=== PATIENT | male | born 1960 | race Caucasian/White ===

== ENCOUNTER 2020-06-16 22:30 | Observation (INO) | payer MEDICAID ==
[~2020-06-16] VITALS: Ht 175.3 cm; Wt 84.7 kg
[2020-06-16] MEDS ORDERED: ASPIRIN 81 MG CHEW (CHILDREN'S ASA) PO ONE (23:00)
[2020-06-16] MEDS ORDERED: NITROGLYCERIN 0.4 MG SL TABS BTL 25'S SL PRN (23:00)
--- NOTE | 2020-06-16 23:01 | ED Chest Pain ---
General Stated Complaint: CHEST PAIN,LT ARM NUMBNESS Source: patient History of Present Illness Date Seen by Provider: Jun 16, 2020 Time Seen by Provider: 22:47 Allergies and Home Medications Allergies Coded Allergies: No Known Drug Allergies (Unverified , 06/16/20) Past Rfagzzl-Nducpo-Ztfdnq Hx Past Med/Social Hx: Reviewed and Corrections made Patient Social History Alcohol Use: Regular Use Recreational Drug Use: Yes (THC; UDS + FOR METH AND TRICYCLICS 06/17/20) Drug of Choice: THC, UDS + FOR METH, TRICYCLICS 06/17/20 Smoking Status: Current Everyday Smoker (1 PPD) Type Used: Cigarettes Recent Foreign Travel: No Contact w/Someone Who Travel: No Past Medical History Surgeries: Yes (AORTIC VALVE REPLACEMENT) Pacemaker, Valve Replacement Respiratory: No Cardiac: Yes (AORTIC VALVE REPLACEMENT-MECHANICAL VALVE; PACEMAKER FOR UNKNOWN REASON) Hypertension, Valvular Heart Disease Neurological: No Genitourinary: No Gastrointestinal: No Musculoskeletal: No Endocrine: No HEENT: No Cancer: No Psychosocial: Yes (POLYSUBSTANCE ABUSE) Integumentary: No Blood Disorders: No Family Medical History SOCIAL HISTORY: -REGULAR ETOH USE--MOSTLY TEQUILA -DRUGS--ADMITS TO THC USE; UDS + FOR METHAMPHETAMINES AND TRICYCLIC ANTIDEPRESSANTS 06/17/20 -SMOKES 1 PPD Physical Exam Vital Signs Capillary Refill : Height, Weight, BMI Height: '" Weight: lbs. oz. kg; BMI Method: Progress/Results/Core Measures Results/Orders Lab Results Laboratory Tests Test 06/16/20 22:55 06/17/20 01:10 Range/Units White Blood Count 7.1 4.3-11.0 10^3/uL Red Blood Count 3.68 L 4.30-5.52 10^6/uL Hemoglobin 11.0 L 13.3-17.7 g/dL Hematocrit 34 L 40-54 % Mean Corpuscular Volume 94 80-99 fL Mean Corpuscular Hemoglobin 30 25-34 pg Mean Corpuscular Hemoglobin Concent 32 32-36 g/dL Red Cell Distribution Width 15.3 H 10.0-14.5 % Platelet Count 183 130-400 10^3/uL Mean Platelet Volume 11.5 9.0-12.2 fL Immature Granulocyte % (Auto) 0 % Neutrophils (%) (Auto) 61 42-75 % Lymphocytes (%) (Auto) 25 12-44 % Monocytes (%) (Auto) 9 0-12 % Eosinophils (%) (Auto) 4 0-10 % Basophils (%) (Auto) 1 0-10 % Neutrophils # (Auto) 4.4 1.8-7.8 10^3/uL Lymphocytes # (Auto) 1.8 1.0-4.0 10^3/uL Monocytes # (Auto) 0.6 0.0-1.0 10^3/uL Eosinophils # (Auto) 0.3 0.0-0.3 10^3/uL Basophils # (Auto) 0.0 0.0-0.1 10^3/uL Immature Granulocyte # (Auto) 0.0 0.0-0.1 10^3/uL Prothrombin Time 26.6 H 12.2-14.7 SEC INR Comment 2.4 H 0.8-1.4 Activated Partial Thromboplast Time 52 H 24-35 SEC Sodium Level 140 135-145 MMOL/L Potassium Level 3.7 3.6-5.0 MMOL/L Chloride Level 100 98-107 MMOL/L Carbon Dioxide Level 27 21-32 MMOL/L Anion Gap 13 5-14 MMOL/L Blood Urea Nitrogen 15 7-18 MG/DL Creatinine 1.33 H 0.60-1.30 MG/DL Estimat Glomerular Filtration Rate 55 BUN/Creatinine Ratio 11 Glucose Level 104 70-105 MG/DL Calcium Level 9.0 8.5-10.1 MG/DL Corrected Calcium 8.6 8.5-10.1 MG/DL Magnesium Level 1.7 1.6-2.4 MG/DL Total Bilirubin 0.7 0.1-1.0 MG/DL Aspartate Amino Transf (AST/SGOT) 19 5-34 U/L Alanine Aminotransferase (ALT/SGPT) 17 0-55 U/L Alkaline Phosphatase 61 40-136 U/L Total Creatine Kinase 107 30-200 U/L Creatine Kinase MB 1.8 <6.6 NG/ML Myoglobin 42.3 10.0-92.0 NG/ML Troponin I < 0.028 <0.028 NG/ML B-Type Natriuretic Peptide 278.4 H <100.0 PG/ML Total Protein 7.4 6.4-8.2 GM/DL Albumin 4.5 3.2-4.5 GM/DL Amylase Level 33 25-125 U/L Lipase 31 8-78 U/L Serum Alcohol < 10 <10 MG/DL Urine Color YELLOW Urine Clarity CLEAR Urine pH 5.5 5-9 Urine Specific [place] 1.010 L 1.016-1.022 Urine Protein NEGATIVE NEGATIVE Urine Glucose (UA) NEGATIVE NEGATIVE Urine Ketones NEGATIVE NEGATIVE Urine Nitrite NEGATIVE NEGATIVE Urine Bilirubin NEGATIVE NEGATIVE Urine Urobilinogen 0.2 < = 1.0 MG/DL Urine Leukocyte Esterase NEGATIVE NEGATIVE Urine RBC (Auto) NEGATIVE NEGATIVE Urine RBC NONE /HPF Urine WBC NONE /HPF Urine Squamous Epithelial Cells RARE /HPF Urine Crystals NONE /LPF Urine Bacteria NEGATIVE /HPF Urine Casts PRESENT /LPF Urine Hyaline Casts RARE /LPF Urine Mucus NEGATIVE /LPF Urine Culture Indicated NO Urine Opiates Screen NEGATIVE NEGATIVE Urine Oxycodone Screen NEGATIVE NEGATIVE Urine Methadone Screen NEGATIVE NEGATIVE Urine Propoxyphene Screen NEGATIVE NEGATIVE Urine Barbiturates Screen NEGATIVE NEGATIVE Ur Tricyclic Antidepressants Screen POSITIVE H NEGATIVE Urine Phencyclidine Screen NEGATIVE NEGATIVE Urine Amphetamines Screen NEGATIVE NEGATIVE Urine Methamphetamines Screen POSITIVE H NEGATIVE Urine Benzodiazepines Screen NEGATIVE NEGATIVE Urine Cocaine Screen NEGATIVE NEGATIVE Urine Cannabinoids Screen NEGATIVE NEGATIVE My Orders Orders - DESI,NANCY K DO Cbc With Automated Diff (06/16/20 22:46) Magnesium (06/16/20 22:46) Chest 1 View, Ap/Pa Only (06/16/20 22:46) Ekg Tracing (06/16/20 22:46) Comprehensive Metabolic Panel (06/16/20 22:46) Myoglobin Serum (06/16/20 22:46) Protime With Inr (06/16/20 22:46) Partial Thromboplastin Time (06/16/20 22:46) O2 (06/16/20 22:46) Monitor-Rhythm Ecg Trace Only (06/16/20 22:46) Ed Iv/Invasive Line Start (06/16/20 22:46) Creatine Kinase (06/16/20 22:46) Creatine Kinase Mb (06/16/20 22:46) Lipase (06/16/20 22:46) Amylase (06/16/20 22:46) BNP (06/16/20 22:46) Troponin I (06/16/20 22:46) Aspirin Chewable Tablet (Baby Aspirin Ch (06/16/20 23:00) Nitroglycerin 0.4 Mg Btl 25's (Nitrostat (06/16/20 23:00) Alcohol (06/16/20 23:39) Drug Screen Stat (Urine) (06/16/20 23:39) Ua Culture If Indicated (06/16/20 23:39) Ed Iv/Invasive Line Start (06/16/20 23:39) Ketorolac Injection (Toradol Injection) (06/16/20 23:45) Nitroglycerin Ointment (Nitrobid Ointme (06/16/20 23:45) Ct Angio Chest W (06/17/20 00:01) Medications Given in ED Current Medications Medications Dose Ordered Sig/Rakesh Route Start Time Stop Time Status Last Admin Dose Admin Aspirin 324 mg ONCE ONCE PO 06/16/20 23:00 06/16/20 23:01 DC 06/16/20 23:12 324 MG Ketorolac Tromethamine 30 mg ONCE ONCE IVP 06/16/20 23:45 06/16/20 23:47 DC 06/17/20 00:25 30 MG Nitroglycerin 0.5 inch ONCE ONCE TOP 06/16/20 23:45 06/16/20 23:47 DC 06/17/20 00:25 0.5 INCH Nitroglycerin 1 TAB Q 5 MIN X 3 NEEDED PRN SL 06/16/20 23:00 06/16/20 23:16 0.4 MG Initial ECG Impression Date: Jun 16, 2020 Initial ECG Impression Time: 22:54 Initial ECG Rate: 72 Initial ECG Comparisson: No Previous ECG Available Comment AV PACED BEAT FOLLOWED BY PVC--BIGEMINY Departure Departure-Patient Inst. Referrals: NO,LOCAL PHYSICIAN (PCP/Family) Primary Care Physician NANCY WEEKS DO Jun 16, 2020 23:01
[2020-06-16 23:06] LABS: BASOPHILS % (AUTO) 1 % (0-10); EOSINOPHILS # (AUTO) 0.3 10^3/uL (0.0-0.3); EOSINOPHILS % (AUTO) 4 % (0-10); HEMATOCRIT 34 % (40-54); LYMPHOCYTES # (AUTO) 1.8 10^3/uL (1.0-4.0); LYMPHOCYTES % (AUTO) 25 % (12-44); MEAN CORPUSCULAR HEMOGLOBIN 30 pg (25-34); MEAN CORPUSCULAR HGB CONC 32 g/dL (32-36); MEAN CORPUSCULAR VOLUME 94 fL (80-99); MEAN PLATELET VOLUME 11.5 fL (9.0-12.2); MONOCYTES # (AUTO) 0.6 10^3/uL (0.0-1.0); MONOCYTES % (AUTO) 9 % (0-12); NEUTROPHILS # (AUTO) 4.4 10^3/uL (1.8-7.8); NEUTROPHILS % (AUTO) 61 % (42-75); PLATELET COUNT 183 10^3/uL (130-400); WHITE BLOOD COUNT 7.1 10^3/uL (4.3-11.0)
--- NOTE | 2020-06-16 23:16 | NUR ---
Ntg tab given x 1: pain 2/: b/p 135/88 prior to administration.
[2020-06-16 23:17] LABS: ALBUMIN 4.5 GM/DL (3.2-4.5); INR 2.4 (0.8-1.4); POTASSIUM 3.7 MMOL/L (3.6-5.0); PROTHROMBIN TIME PATIENT 26.6 SEC (12.2-14.7)
[2020-06-16 23:20] LABS: TOTAL PROTEIN 7.4 GM/DL (6.4-8.2)
[2020-06-16 23:22] LABS: BILIRUBIN,TOTAL 0.7 MG/DL (0.1-1.0)
[2020-06-16 23:23] LABS: CREATININE SERUM 1.33 MG/DL (0.60-1.30)
[2020-06-16 23:26] LABS: MAGNESIUM 1.7 MG/DL (1.6-2.4)
[2020-06-16 23:34] LABS: CREATINE KINASE MB 1.8 NG/ML (<6.6)
[2020-06-16] MEDS ORDERED: KETOROLAC 30 MG/ML VIAL IVP ONE (23:45)
[2020-06-16] MEDS ORDERED: NITROGLYCERIN 2% OINT 1 GM UNIT DOSE PACKET TOP ONE (23:45)
[2020-06-17] VITALS (7 sets, daily range): BP systolic 122–173; BP diastolic 74–89
[2020-06-17 01:27] LABS: BILIRUBIN,URINE NEGATIVE (NEGATIVE); CLARITY,URINE CLEAR; COLOR,URINE YELLOW; GLUCOSE, URINE (UA) NEGATIVE (NEGATIVE); KETONES,URINE NEGATIVE (NEGATIVE); LEUKOCYTE ESTERASE ,URINE NEGATIVE (NEGATIVE); NITRITE,URINE NEGATIVE (NEGATIVE); PH,URINE 5.5 (5-9); PROTEIN,URINE NEGATIVE (NEGATIVE)
[2020-06-17 01:45] LABS: AMPHETAMINE SCREEN, URINE NEGATIVE (NEGATIVE); BARBITURATE SCREEN URINE NEGATIVE (NEGATIVE); BENZODIAZEPINES SCREEN URINE NEGATIVE (NEGATIVE); CANNABINOID SCREEN, URINE NEGATIVE (NEGATIVE); COCAINE SCREEN URINE NEGATIVE (NEGATIVE); METHADONE STAT NEGATIVE (NEGATIVE); METHAMPHETAMINE SCREEN URINE S POSITIVE (NEGATIVE); OPIATE SCREEN URINE NEGATIVE (NEGATIVE); OXYCODONE STAT NEGATIVE (NEGATIVE); PROPOXYPHENE STAT NEGATIVE (NEGATIVE); TRICYCLIC ANTIDEPRESSANTS SCRE POSITIVE (NEGATIVE)
[2020-06-17 02:03] LABS: BACTERIA,URINE NEGATIVE /HPF; HYALINE CASTS, URINE RARE /LPF; SQUAMOUS EPITHELIAL CELL,UR RARE /HPF
[2020-06-17] MEDS ORDERED: CATHETER FLUSH 10 ML SYR IV PRN (04:15)
[2020-06-17] MEDS ORDERED: ACETAMINOPHEN 500 MG TAB (TYLENOL) PO PRN (04:15)
--- NOTE | 2020-06-17 04:40 | NUR ---
FREIDA GROVES admitted to room 512-1, with an admitting diagnosis of chest pain, on 06/17/20 from ed via , accompanied by staff.FREIDA GROVES introduced to surroundings, call light, bed controls, phone, TV, temperature control, lights, meal times, smoking policy, visitor policy, side rail policy, bathrooms and showers. Patient Rights given to patient in the handbook. FREIDA GROVES verbalizes understanding that [facility] is not responsible for the loss or damage to any personal effects or valuables that are kept in the patients possession during their hospitalization. Patient denies any questions or concerns at this time. Patient and/or family were informed about the Rapid Response Team and its purpose.
--- NOTE | 2020-06-17 04:48 | NUR ---
pt states he is up to date on his flu & pna vaccine
[2020-06-17 05:20] LABS: BASOPHILS % (AUTO) 0 % (0-10); EOSINOPHILS # (AUTO) 0.2 10^3/uL (0.0-0.3); EOSINOPHILS % (AUTO) 3 % (0-10); HEMATOCRIT 30 % (40-54); HEMOGLOBIN 9.9 g/dL (13.3-17.7); LYMPHOCYTES # (AUTO) 1.6 10^3/uL (1.0-4.0); LYMPHOCYTES % (AUTO) 22 % (12-44); MEAN CORPUSCULAR HEMOGLOBIN 30 pg (25-34); MEAN CORPUSCULAR HGB CONC 33 g/dL (32-36); MEAN CORPUSCULAR VOLUME 92 fL (80-99); MEAN PLATELET VOLUME 12.1 fL (9.0-12.2); MONOCYTES # (AUTO) 0.5 10^3/uL (0.0-1.0); MONOCYTES % (AUTO) 7 % (0-12); NEUTROPHILS # (AUTO) 4.6 10^3/uL (1.8-7.8); NEUTROPHILS % (AUTO) 67 % (42-75); PLATELET COUNT 157 10^3/uL (130-400); WHITE BLOOD COUNT 6.9 10^3/uL (4.3-11.0)
[2020-06-17 05:36] LABS: ALBUMIN 3.9 GM/DL (3.2-4.5); CHLORIDE 101 MMOL/L (98-107); POTASSIUM 3.6 MMOL/L (3.6-5.0)
[2020-06-17 05:37] LABS: SODIUM 137 MMOL/L (135-145)
[2020-06-17 05:38] LABS: CALCIUM 8.4 MG/DL (8.5-10.1)
[2020-06-17 05:39] LABS: GLUCOSE 104 MG/DL (70-105); TOTAL PROTEIN 6.3 GM/DL (6.4-8.2)
[2020-06-17 05:40] LABS: CARBON DIOXIDE 26 MMOL/L (21-32)
[2020-06-17 05:41] LABS: BILIRUBIN,TOTAL 0.5 MG/DL (0.1-1.0)
[2020-06-17 05:42] LABS: ALKALINE PHOSPHATASE 53 U/L (40-136)
[2020-06-17 05:43] LABS: BUN/CREATININE RATIO 12; CREATININE SERUM 1.18 MG/DL (0.60-1.30); GFR ESTIMATED > 60
[2020-06-17 05:45] LABS: ALANINE AMINOTRANSFERASE 13 U/L (0-55)
[2020-06-17] MEDS ORDERED: NITROGLYCERIN 2% OINT 1 GM UNIT DOSE PACKET TOP SCH (06:00)
[2020-06-17] MEDS ORDERED: ONDANSETRON 4 MG/2 ML (SDV) Z0FRAN IV PRN (06:30)
--- NOTE | 2020-06-17 06:39 | Diagnostic Imaging Report ---
PROCEDURE: CT angiography of the chest with contrast. TECHNIQUE: Multiple contiguous axial images were obtained through the chest after uneventful bolus administration of intravenous contrast. 3D reconstructed CTA MIP acquisitions were also performed. Auto Exposure Controls were utilized during the CT exam to meet ALARA standards for radiation dose reduction. INDICATION: Chest pain. COMPARISON: Chest radiograph 06/16/2020. FINDINGS: No pulmonary artery filling defects. Normal caliber thoracic aorta. Cardiomegaly. Sternotomy. Cardiac valve prosthesis. No pericardial effusion. Prominent mediastinal lymph nodes including a pretracheal lymph node measuring up to 1.1 cm in short axis dimension. The lungs are clear. No pleural effusion or pneumothorax. The visualized upper abdominal contents are negative. No acute osseous findings. IMPRESSION: 1. No pulmonary emboli. 2. Lungs are clear. 3. Prominent mediastinal lymph nodes are indeterminate. 4. Cardiomegaly. Cardiac valve prosthesis. No significant change from preliminary interpretation. Dictated by: Dictated on workstation # [id number]
[2020-06-17] MEDS ORDERED: morphine INJ 4 MG/ML 1 ML (VIAL/SYRINGE) IV PRN (06:45)
--- NOTE | 2020-06-17 07:25 | Diagnostic Imaging Report ---
INDICATION: Chest pain. TECHNIQUE: Single view chest 11:54 PM. CORRELATION STUDY: 12/06/2014 FINDINGS: Poststernotomy and cardiac valve surgical change. Left-sided pacemaker. Heart size enlarged. Vasculature overall within normal limits. Blunting of the right costophrenic angle may reflect pleural effusion versus pleural thickening. Slight right lung volume loss. No consolidating infiltrate. IMPRESSION: 1. Cardiac enlargement without overt failure. 2. Poststernotomy and cardiac valve prosthesis. Blunting of the right costophrenic angle may reflect pleural effusion versus pleural thickening. Dictated by: Dictated on workstation # [id number]
--- NOTE | 2020-06-17 07:26 | NUR ---
dr. stern on floor to see pt- new orders received
--- NOTE | 2020-06-17 07:37 | Consultation-Cardiology ---
HPI-Cardiology Cardiology Consultation Date of Consultation 06/17/20 Date of Admission Time Seen by Provider: 07:34 Indication: chest pain HPI 59 years old gentleman with history of aortic valve replacement done about 3 years ago, no known history of coronary artery disease, has been following with Dr. Wilson in [place]. Started to have left-sided chest pain with numbness in h is arm. Overnight he was maintained on nitroglycerin patch. Denied any further episode of chest pain, no acute EKG changes. No palpitation. No shortness of breath. No syncope or near syncopal episode Home Medications & Allergies Allergies: Coded Allergies: No Known Drug Allergies (Unverified , 06/16/20) Home Medication List Reviewed: Yes CVS-Myaml[facility]-Drrp[facility] Hx Patient Social History Marital Status: Alcohol Use: Regular Use Recreational Drug Use: Yes (THC; UDS + FOR METH AND TRICYCLICS 06/17/20) Drug of Choice: THC, UDS + FOR METH, TRICYCLICS 06/17/20 Smoking Status: Current Everyday Smoker (1 PPD) Type Used: Cigarettes Recent Foreign Travel: No Recent Infectious Disease Expo: No Immunizations Up To Date Date of Pneumonia Vaccine: May 15, 2020 Date of Influenza Vaccine: May 15, 2020 Past Medical History Discussed below Family Medical History Family History: Diabetes mellitus 19 MOTHER Hypertension 19 FATHER Review of Systems-General Review of Systems Constitutional: no symptoms reported, see HPI EENTM: see HPI, no symptoms reported Respiratory: see HPI; No cough, No dyspnea on exertion, No hemoptysis, No orthopnea, No phlegm, No short of breath, No stridor, No wheezing, No other Cardiovascular: see HPI, chest pain; No edema, No Hx of Intervention, No palpitations, No syncope, No vascular heart diseas, No other Gastrointestinal: no symptoms reported, see HPI Genitourinary: no symptoms reported, see HPI Musculoskeletal: no symptoms reported, see HPI Skin: no symptoms reported, see HPI Psychiatric/Neurological: No Symptoms Reported, See HPI Reviewed Test Results Reviewed Test Results Lab Laboratory Tests Test 06/16/20 22:55 06/17/20 01:10 06/17/20 05:02 Range/Units White Blood Count 7.1 6.9 4.3-11.0 10^3/uL Red Blood Count 3.68 L 3.28 L 4.30-5.52 10^6/uL Hemoglobin 11.0 L 9.9 L 13.3-17.7 g/dL Hematocrit 34 L 30 L 40-54 % Mean Corpuscular Volume 94 92 80-99 fL Mean Corpuscular Hemoglobin 30 30 25-34 pg Mean Corpuscular Hemoglobin Concent 32 33 32-36 g/dL Red Cell Distribution Width 15.3 H 15.3 H 10.0-14.5 % Platelet Count 183 157 130-400 10^3/uL Mean Platelet Volume 11.5 12.1 9.0-12.2 fL Immature Granulocyte % (Auto) 0 1 % Neutrophils (%) (Auto) 61 67 42-75 % Lymphocytes (%) (Auto) 25 22 12-44 % Monocytes (%) (Auto) 9 7 0-12 % Eosinophils (%) (Auto) 4 3 0-10 % Basophils (%) (Auto) 1 0 0-10 % Neutrophils # (Auto) 4.4 4.6 1.8-7.8 10^3/uL Lymphocytes # (Auto) 1.8 1.6 1.0-4.0 10^3/uL Monocytes # (Auto) 0.6 0.5 0.0-1.0 10^3/uL Eosinophils # (Auto) 0.3 0.2 0.0-0.3 10^3/uL Basophils # (Auto) 0.0 0.0 0.0-0.1 10^3/uL Immature Granulocyte # (Auto) 0.0 0.0 0.0-0.1 10^3/uL Prothrombin Time 26.6 H 12.2-14.7 SEC INR Comment 2.4 H 0.8-1.4 Activated Partial Thromboplast Time 52 H 24-35 SEC Sodium Level 140 137 135-145 MMOL/L Potassium Level 3.7 3.6 3.6-5.0 MMOL/L Chloride Level 100 101 98-107 MMOL/L Carbon Dioxide Level 27 26 21-32 MMOL/L Anion Gap 13 10 5-14 MMOL/L Blood Urea Nitrogen 15 14 7-18 MG/DL Creatinine 1.33 H 1.18 0.60-1.30 MG/DL Estimat Glomerular Filtration Rate 55 > 60 BUN/Creatinine Ratio 11 12 Glucose Level 104 104 70-105 MG/DL Calcium Level 9.0 8.4 L 8.5-10.1 MG/DL Corrected Calcium 8.6 8.5 8.5-10.1 MG/DL Magnesium Level 1.7 1.6-2.4 MG/DL Total Bilirubin 0.7 0.5 0.1-1.0 MG/DL Aspartate Amino Transf (AST/SGOT) 19 17 5-34 U/L Alanine Aminotransferase (ALT/SGPT) 17 13 0-55 U/L Alkaline Phosphatase 61 53 40-136 U/L Total Creatine Kinase 107 30-200 U/L Creatine Kinase MB 1.8 <6.6 NG/ML Myoglobin 42.3 10.0-92.0 NG/ML Troponin I < 0.028 < 0.028 <0.028 NG/ML B-Type Natriuretic Peptide 278.4 H <100.0 PG/ML Total Protein 7.4 6.3 L 6.4-8.2 GM/DL Albumin 4.5 3.9 3.2-4.5 GM/DL Amylase Level 33 25-125 U/L Lipase 31 8-78 U/L Serum Alcohol < 10 <10 MG/DL Urine Color YELLOW Urine Clarity CLEAR Urine pH 5.5 5-9 Urine Specific [place] 1.010 L 1.016-1.022 Urine Protein NEGATIVE NEGATIVE Urine Glucose (UA) NEGATIVE NEGATIVE Urine Ketones NEGATIVE NEGATIVE Urine Nitrite NEGATIVE NEGATIVE Urine Bilirubin NEGATIVE NEGATIVE Urine Urobilinogen 0.2 < = 1.0 MG/DL Urine Leukocyte Esterase NEGATIVE NEGATIVE Urine RBC (Auto) NEGATIVE NEGATIVE Urine RBC NONE /HPF Urine WBC NONE /HPF Urine Squamous Epithelial Cells RARE /HPF Urine Crystals NONE /LPF Urine Bacteria NEGATIVE /HPF Urine Casts PRESENT /LPF Urine Hyaline Casts RARE /LPF Urine Mucus NEGATIVE /LPF Urine Culture Indicated NO Urine Opiates Screen NEGATIVE NEGATIVE Urine Oxycodone Screen NEGATIVE NEGATIVE Urine Methadone Screen NEGATIVE NEGATIVE Urine Propoxyphene Screen NEGATIVE NEGATIVE Urine Barbiturates Screen NEGATIVE NEGATIVE Ur Tricyclic Antidepressants Screen POSITIVE H NEGATIVE Urine Phencyclidine Screen NEGATIVE NEGATIVE Urine Amphetamines Screen NEGATIVE NEGATIVE Urine Methamphetamines Screen POSITIVE H NEGATIVE Urine Benzodiazepines Screen NEGATIVE NEGATIVE Urine Cocaine Screen NEGATIVE NEGATIVE Urine Cannabinoids Screen NEGATIVE NEGATIVE Physical Exam Physical Exam Vital Signs Vital Signs - First Documented 06/17/20 06/17/20 04:16 04:27 Temp 36.2 Pulse 61 Resp 18 B/P (MAP) 167/78 (107) Pulse Ox 95 O2 Delivery Room Air Capillary Refill : Height, Weight, BMI Height: '" Weight: lbs. oz. kg; 27.56 BMI Method: General Appearance: No Apparent Distress, WD/WN Eyes: Bilateral Eye Normal Inspection, Bilateral Eye PERRL, Bilateral Eye EOMI HEENT: PERRL/EOMI, TMs Normal, Normal ENT Inspection, Pharynx Normal, Moist Mucous Membranes Neck: Full Range of Motion, Normal Inspection, Non Tender, Supple, Carotid Bruit Respiratory: Chest Non Tender, Normal Breath Sounds, No Accessory Muscle Use, No Respiratory Distress Cardiovascular: Regular Rate, Rhythm, No Edema, No Gallop, No JVD, Normal Peripheral Pulses, Other (metallic click of prosthetic valve) Gastrointestinal: Normal Bowel Sounds, No Organomegaly, No Pulsatile Mass, Non Tender, Soft Back: Normal Inspection, No CVA Tenderness, No Vertebral Tenderness Extremity: Normal Capillary Refill, Normal Inspection, Normal Range of Motion, Non Tender, No Calf Tenderness, No Pedal Edema Neurologic/Psychiatric: Alert, Oriented x3, No Motor/Sensory Deficits, Normal Mood/Affect Skin: Normal Color, Warm/Dry Lymphatic: No Adenopathy A/P-Cardiology Admission Diagnosis Chest pain Aortic valve replacement Hypertension Assessment/Plan Chest pain nonspecific etiology, resembling angina. No further episodes of chest pain. EKG did not show any acute abnormality, cardiac enzymes were negative. I recommended having a stress test done as an outpatient. Patient will follow with Dr. Patel as an outpatient. Aortic valve replacement, had prosthetic valve surgery done 3 years ago at that time did not have any coronary artery disease. Valve appeared to be functioning normally. I will evaluate 2-D echo. Hypertension, restart home medication monitor blood pressure Clinical Quality Measures DVT/VTE Risk/Contraindication: Risk Factor Score Per Nursin RFS Level Per Nursing on Admit: 3=High YESY THAYER MD Jun 17, 2020 07:37
[2020-06-17] MEDS ORDERED: ASPIRIN E.C. 81 MG (ECOTRIN) TAB PO SCH (09:00)
[2020-06-17] MEDS ORDERED: AMLO-250 PO (09:04)
[2020-06-17] MEDS ORDERED: WRF2.5T PO (09:04)
[2020-06-17] MEDS ORDERED: GEMF600T8 PO (09:04)
[2020-06-17] MEDS ORDERED: ALBU8TAB INH (09:04)
[2020-06-17] MEDS ORDERED: FERR325T18 PO (09:04)
[2020-06-17] MEDS ORDERED: FURO40TA4 PO (09:04)
[2020-06-17] MEDS ORDERED: DULO60CA59 PO (09:04)
[2020-06-17] MEDS ORDERED: PANT20TA18 PO (09:04)
[2020-06-17] MEDS ORDERED: TIOT18CA2 INH (09:04)
[2020-06-17] MEDS ORDERED: MECL-149 PO (09:04)
[2020-06-17] MEDS ORDERED: METF750T45 PO (09:04)
[2020-06-17] MEDS ORDERED: BUSP10TA95 PO (09:04)
[2020-06-17] MEDS ORDERED: UREA85CR23 TOP (09:04)
[2020-06-17] MEDS ORDERED: METO-333 PO (09:04)
--- NOTE | 2020-06-17 14:34 | Discharge Summary ---
Discharge Summary Hospital Course Was the Problem List Reviewed?: Yes Problems/Dx: (1) Chest pain Status: Acute Qualifiers: Qualified Codes: R07.9 - Chest pain, unspecified Hospital Course Date of Admission: Jun 17, 2020 at 01:54 Admission Diagnosis : Chest pain Family Physician/Provider: No,Local Physician Date of Discharge: 06/17/20 Discharge Diagnosis: Chest pain Hospital Course: Stewart Lawrence is a 59-year-old male with past medical history of aortic valve replacement who presented with chest pain. Cardiology was consulted and assisted with his care. He was started on nitroglycerin and his pain resolved. His troponin remained normal. His EKG did not show any acute changes. A CT chest revealed no significant abnormalities. Cardiology recommended an outpatient stress test. He will have this done with his migratory game bird biologist, Dr. Rivero, with whom he has an appointment scheduled this week. Follow-up with his primary care physician in about a week. He was discharged home in stable condition. Labs and Pending Lab Test: Laboratory Tests 06/16/20 22:55: White Blood Count 7.1, Red Blood Count 3.68L, Hemoglobin 11.0L, Hematocrit 34L, Mean Corpuscular Volume 94, Mean Corpuscular Hemoglobin 30, Mean Corpuscular Hemoglobin Concent 32, Red Cell Distribution Width 15.3H, Platelet Count 183, Mean Platelet Volume 11.5, Immature Granulocyte % (Auto) 0, Neutrophils (%) (Auto) 61, Lymphocytes (%) (Auto) 25, Monocytes (%) (Auto) 9, Eosinophils (%) (Auto) 4, Basophils (%) (Auto) 1, Neutrophils # (Auto) 4.4, Lymphocytes # (Auto) 1.8, Monocytes # (Auto) 0.6, Eosinophils # (Auto) 0.3, Basophils # (Auto) 0.0, Immature Granulocyte # (Auto) 0.0, Prothrombin Time 26.6H, INR Comment 2.4H, Activated Partial Thromboplast Time 52H, Sodium Level 140, Potassium Level 3.7, Chloride Level 100, Carbon Dioxide Level 27, Anion Gap 13, Blood Urea Nitrogen 15, Creatinine 1.33H, Estimat Glomerular Filtration Rate 55, BUN/Creatinine Ratio 11, Glucose Level 104, Calcium Level 9.0, Corrected Calcium 8.6, Magnesium Level 1.7, Total Bilirubin 0.7, Aspartate Amino Transf (AST/SGOT) 19, Alanine Aminotransferase (ALT/SGPT) 17, Alkaline Phosphatase 61, Total Creatine Kinase 107, Creatine Kinase MB 1.8, Myoglobin 42.3, Troponin I < 0.028, B-Type Natriuretic Peptide 278.4H, Total Protein 7.4, Albumin 4.5, Amylase Level 33, Lipase 31, Serum Alcohol < 10 06/17/20 01:10: Urine Color YELLOW, Urine Clarity CLEAR, Urine pH 5.5, Urine Specific [place] 1.010L, Urine Protein NEGATIVE, Urine Glucose (UA) NEGATIVE, Urine Ketones NEGATIVE, Urine Nitrite NEGATIVE, Urine Bilirubin NEGATIVE, Urine Urobilinogen 0.2, Urine Leukocyte Esterase NEGATIVE, Urine RBC (Auto) NEGATIVE, Urine RBC NONE, Urine WBC NONE, Urine Squamous Epithelial Cells RARE, Urine Crystals NONE, Urine Bacteria NEGATIVE, Urine Casts PRESENT, Urine Hyaline Casts RARE, Urine Mucus NEGATIVE, Urine Culture Indicated NO, Urine Opiates Screen NEGATIVE, Urine Oxycodone Screen NEGATIVE, Urine Methadone Screen NEGATIVE, Urine Propoxyphene Screen NEGATIVE, Urine Barbiturates Screen NEGATIVE, Ur Tricyclic Antidepressants Screen POSITIVEH, Urine Phencyclidine Screen NEGATIVE, Urine Amphetamines Screen NEGATIVE, Urine Methamphetamines Screen POSITIVEH, Urine Benzodiazepines Screen NEGATIVE, Urine Cocaine Screen NEGATIVE, Urine Cannabinoids Screen NEGATIVE 06/17/20 05:02: White Blood Count 6.9, Red Blood Count 3.28L, Hemoglobin 9.9L, Hematocrit 30L, Mean Corpuscular Volume 92, Mean Corpuscular Hemoglobin 30, Mean Corpuscular Hem oglobin Concent 33, Red Cell Distribution Width 15.3H, Platelet Count 157, Mean Platelet Volume 12.1, Immature Granulocyte % (Auto) 1, Neutrophils (%) (Auto) 67, Lymphocytes (%) (Auto) 22, Monocytes (%) (Auto) 7, Eosinophils (%) (Auto) 3, Basophils (%) (Auto) 0, Neutrophils # (Auto) 4.6, Lymphocytes # (Auto) 1.6, Monocytes # (Auto) 0.5, Eosinophils # (Auto) 0.2, Basophils # (Auto) 0.0, Immature Granulocyte # (Auto) 0.0, Sodium Level 137, Potassium Level 3.6, Chloride Level 101, Carbon Dioxide Level 26, Anion Gap 10, Blood Urea Nitrogen 14, Creatinine 1.18, Estimat Glomerular Filtration Rate > 60, BUN/Creatinine Ratio 12, Glucose Level 104, Calcium Level 8.4L, Corrected Calcium 8.5, Total Bilirubin 0.5, Aspartate Amino Transf (AST/SGOT) 17, Alanine Aminotransferase (ALT/SGPT) 13, Alkaline Phosphatase 53, Troponin I < 0.028, Total Protein 6.3L, Albumin 3.9 Home Meds Active Reported Urea 85 Gm Cream..g. 1 Gm TOP DAILY PRN Meclizine HCl 25 Mg Tablet 25 Mg PO TID PRN Metoprolol Tartrate 25 Mg Tablet 25 Mg PO BID Gemfibrozil 600 Mg Tablet 600 Mg PO BID Warfarin Sodium 2.5 Mg Tablet 2.5 Mg PO DAILY Duloxetine HCl 60 Mg Capsule.dr 60 Mg PO DAILY Pantoprazole Sodium 20 Mg Tablet.dr 20 Mg PO DAILY Albuterol Sulfate 8 Mg Tab.er.12h 2 Inhaler INH Q6H PRN Spiriva (Tiotropium [place]) 1 Inh Aerp 1 Inhaler INH DAILY Amlodipine Besylate 5 Mg Tablet 5 Mg PO DAILY Furosemide 40 Mg Tablet 40 Mg PO DAILY Ferrous Sulfate 325 Mg Tablet 325 Mg PO DAILY Metformin HCl ER (Metformin HCl) 750 Mg Tab.er.24h 750 Mg PO DAILY Buspirone HCl 10 Mg Tablet 10 Mg PO BID Assessment/Pt Instructions Take medications as prescribed. Follow up with your migratory game bird biologist for a stress test. Return with worsening chest pain. Discharge Planning: <30 minutes discharge planning Discharge Instructions Discharge Diet: No Restrictions Activity as Tolerated: Yes Consultations Cardiology Discharge Physical Examination Vital Signs Vital Signs Date Time Temp Pulse Resp B/P (MAP) Pulse Ox O2 Delivery O2 Flow Rate FiO2 06/17/20 12:00 36.3 63 19 169/74 93 Room Air General Appearance: No Apparent Distress, WD/WN Respiratory: Lungs Clear, Normal Breath Sounds, No Respiratory Distress Cardiovascular: Regular Rate, Rhythm, No Edema, No Murmur Gastrointestinal: Normal Bowel Sounds, Non Tender, Soft Extremity: Normal Inspection, Non Tender, No Pedal Edema Skin: Normal Color, Warm/Dry Neurologic/Psychiatric: Alert, Oriented x3, No Motor/Sensory Deficits, Normal Mood/Affect Allergies: Coded Allergies: No Known Drug Allergies (Unverified , 06/16/20) Discharge Summary Date of Admission Jun 17, 2020 at 01:54 Date of Discharge Jun 17, 2020 at 12:00 Discharge Date: Jun 17, 2020 Discharge Time: 12:00 Admission Diagnosis Chest pain Consults/Procedures Consulations Cardiology Discharge Diagnosis (1) Chest pain Status: Acute Qualifiers: Qualified Codes: R07.9 - Chest pain, unspecified Clinical Quality Measures DVT/VTE Risk/Contraindication: Risk Factor Score Per Nursin RFS Level Per Nursing on Admit: 3=High DA LAWSON MD Jun 17, 2020 14:34
== END 2020-06-17 12:00 | disposition home or self-care (01) ==
LOC: ER 22:30 → CSD 06-17 01:54
PROVIDERS: ADMIT Internal Medicine; ATTEND Internal Medicine
DX: R07.9 Chest pain, unspecified (principal); R20.0 Anesthesia of skin; I10 Essential (primary) hypertension; I36.1 Nonrheumatic tricuspid (valve) insufficiency; I37.1 Nonrheumatic pulmonary valve insufficiency; F17.210 Nicotine dependence, cigarettes, uncomplicated; Z79.82 Long term (current) use of aspirin; Z95.2 Presence of prosthetic heart valve; Z83.3 Family history of diabetes mellitus
CPT/HCPCS: 71045; 71275; 80053 ×2; 80306; 81000; 82150; 82550; 82553; 83690; 83735; 83874; 83880; 84484 ×2; 85025 ×2; 85610; 85730; 93005 ×2; 93041; 93306; 99284; G0480; 36415; 80320

== ENCOUNTER 2021-08-15 01:31 | Emergency (ER) | payer MEDICAID ==
[~2021-08-15] VITALS: Ht 175 cm; Wt 89.6 kg
[~2021-08-15 01:31] MED LIST: ALBU8TAB INH; AMLO-250 PO; BUSP10TA95 PO; DULO60CA59 PO; FERR325T18 PO; FURO40TA4 PO; GEMF600T88 PO; MECL-149 PO; METF750T45 PO; METO-333 PO; PANT20TA18 PO; TIOT18CA2 INH; UREA85CR23 TOP; WRF2.5T PO
[2021-08-15] MEDS ORDERED: hydrALAZINE (APESOLINE) 20 MG/ML VIAL IV STA ×2 (01:48→02:52)
--- NOTE | 2021-08-15 01:56 | ED General ---
General Stated Complaint: LEFT ARM NUMB/NECK PAIN Source of Information: Patient, Old Records History of Present Illness Date Seen by Provider: Aug 15, 2021 Time Seen by Provider: 01:35 Initial Comments 60-year-old male presenting with complaints of left arm numbness and ringing in his ears. He states he ran out of multiple medications on Friday. He is here visiting family for the last few weeks and he ran out of his medications. He has a history of high blood pressure in addition to having a valve replacement in his heart. He is on Coumadin for that. He had similar symptoms last May when he was visiting here. He plans on going back home on Friday but he had hoped that he could make it by until then. On Friday morning around 9 AM he started having symptoms of headache came arm numbness. He was having ringing in his ears and states that it is common for him when he has high blood pressure. He became more anxious and worried about it and finally 1:30 in the morning he came to the emergency department. He seems very anxious and twitchy. Timing/Duration: 2-3 Days Severity: Moderate Associated Systoms: Chest Pain; No Cough, No Diaphoresis, No Fever/Chills; Headaches; No Loss of Appetite, No Malaise, No Nausea/Vomiting, No Rash, No Seizure, No Shortness of Air, No Syncope, No Weakness Allergies and Home Medications Allergies Coded Allergies: No Known Drug Allergies (Unverified , 06/16/20) Patient Home Medication List Home Medication List Reviewed: Yes Albuterol Sulfate (Albuterol Sulfate) 8 Mg Tab.er.12h, 2 INHALER INH Q6H PRN for WHEEZING, (Reported) Entered as Reported by: JESSICA GUARDADO on 06/17/20903 Amlodipine Besylate (Amlodipine Besylate) 5 Mg Tablet, 5 MG PO DAILY, (Reported) Entered as Reported by: JESSICA GUARDADO on 06/17/20903 Buspirone HCl (Buspirone HCl) 10 Mg Tablet, 10 MG PO BID, (Reported) Entered as Reported by: JESSICA GUARDADO on 06/17/20903 Duloxetine HCl (Duloxetine HCl) 60 Mg Capsule.dr, 60 MG PO DAILY, (Reported) Entered as Reported by: JESSICA GUARDADO on 06/17/20903 Ferrous Sulfate (Ferrous Sulfate) 325 Mg Tablet, 325 MG PO DAILY, (Reported) Entered as Reported by: JESSICA GUARDADO on 06/17/20903 Furosemide (Furosemide) 40 Mg Tablet, 40 MG PO DAILY, (Reported) Entered as Reported by: JESSICA GUARDADO on 06/17/20903 Gemfibrozil (Gemfibrozil) 600 Mg Tablet, 600 MG PO BID, (Reported) Entered as Reported by: JESSICA GUARDADO on 06/17/20903 Meclizine HCl (Meclizine HCl) 25 Mg Tablet, 25 MG PO TID PRN for DIZZINESS, (Reported) Entered as Reported by: JESSICA GUARDADO on 06/17/20903 Metformin HCl (Metformin HCl ER) 750 Mg Tab.er.24h, 750 MG PO DAILY, (Reported) Entered as Reported by: JESSICA GUARDADO on 06/17/20903 Metoprolol Tartrate (Metoprolol Tartrate) 25 Mg Tablet, 25 MG PO BID, (Reported) Entered as Reported by: JESSICA GUARDADO on 06/17/20903 Pantoprazole Sodium (Pantoprazole Sodium) 20 Mg Tablet.dr, 20 MG PO DAILY, (R eported) Entered as Reported by: JESSICA GUARDADO on 06/17/20903 Tiotropium [place] (Spiriva) 1 Inh Aerp, 1 INHALER INH DAILY, (Reported) Entered as Reported by: JESSICA GUARDADO on 06/17/20903 Urea (Urea) 85 Gm Cream..g., 1 GM TOP DAILY PRN for ITCHING, (Reported) Entered as Reported by: JESSICA GUARDADO on 06/17/20903 Warfarin Sodium (Warfarin Sodium) 2.5 Mg Tablet, 2.5 MG PO DAILY, (Reported) Entered as Reported by: JESSICA GUARDADO on 06/17/20903 Review of Systems Review of Systems Constitutional: No chills, No fever EENTM: other (Ringing in his ears); No epistaxis Respiratory: No cough, No short of breath, No stridor, No wheezing Cardiovascular: chest pain; No edema, No palpitations, No syncope Gastrointestinal: No abdominal pain, No nausea, No vomiting Genitourinary: No decreased output, No dysuria Musculoskeletal: no symptoms reported Skin: No change in color Psychiatric/Neurological: Anxiety, Headache, Tingling (Left arm) Hematologic/Lymphatic: Denies Blood Clots; Easy Bleeding (Taking warfarin), Easy Bruising (Taking warfarin) Past Otomppn-Tovvnc-Zgskmz Hx Patient Social History Tobacco Use?: Yes Substance use?: Yes Substance type: Marijuana Past Medical History Surgeries: Yes (AORTIC VALVE REPLACEMENT) Pacemaker, Valve Replacement Respiratory: No Cardiac: Yes (AORTIC VALVE REPLACEMENT-MECHANICAL VALVE; PACEMAKER FOR UNKNOWN REASON) High Cholesterol, Hypertension, Valvular Heart Disease Neurological: No Genitourinary: No Gastrointestinal: No Musculoskeletal: No Endocrine: Yes Diabetes, Non-Insulin dep HEENT: No Cancer: No Psychosocial: Yes (POLYSUBSTANCE ABUSE) Anxiety Integumentary: No Blood Disorders: No Family Medical History Diabetes mellitus 19 MOTHER Hypertension 19 FATHER SOCIAL HISTORY: -REGULAR ETOH USE--MOSTLY TEQUILA -DRUGS--ADMITS TO THC USE; UDS + FOR METHAMPHETAMINES AND TRICYCLIC ANTIDEPRESSANTS 06/17/20 -SMOKES 1 PPD Physical Exam Vital Signs Vital Signs - First Documented 08/15/21 01:38 Temp 36.5 Pulse 79 Resp 17 B/P (MAP) 206/97 (133) Pulse Ox 96 O2 Delivery Room Air Capillary Refill : Height, Weight, BMI Height: '" Weight: lbs. oz. kg; 27.56 BMI Method: General Appearance: Anxious, Moderate Distress (Patient seems very anxious and is very twitchy) Eyes: Bilateral Eye PERRL, Bilateral Eye EOMI HEENT: Pharynx Normal Neck: Full Range of Motion, Normal Inspection, Non Tender, Supple Respiratory: Chest Non Tender, Lungs Clear, Normal Breath Sounds, No Accessory Muscle Use, No Respiratory Distress Cardiovascular: Regular Rate, Rhythm, Normal Peripheral Pulses Gastrointestinal: Normal Bowel Sounds, No Pulsatile Mass, Non Tender, Soft Rectal: Deferred Extremity: Normal Capillary Refill, Normal Inspection, No Pedal Edema Neurologic/Psychiatric: Alert, Oriented x3, sports therapist II-XII Norm as Tested, Other (anxious) Skin: Normal Color, Warm/Dry Progress/Results/Core Measures Suspected Sepsis SIRS Temperature: Pulse: Respiratory Rate: Laboratory Tests 08/15/21 01:50: White Blood Count 11.8H Blood Pressure / Mean: Laboratory Tests 08/15/21 01:50: Creatinine 1.11, INR Comment 1.1, Platelet Count 200, Total Bilirubin 0.7 Results/Orders Lab Results Laboratory Tests Test 08/15/21 01:50 Range/Units White Blood Count 11.8 H 4.3-11.0 10^3/uL Red Blood Count 4.60 4.30-5.52 10^6/uL Hemoglobin 12.2 L 13.3-17.7 g/dL Hematocrit 38 L 40-54 % Mean Corpuscular Volume 82 80-99 fL Mean Corpuscular Hemoglobin 27 25-34 pg Mean Corpuscular Hemoglobin Concent 32 32-36 g/dL Red Cell Distribution Width 15.5 H 10.0-14.5 % Platelet Count 200 130-400 10^3/uL Mean Platelet Volume 11.2 9.0-12.2 fL Immature Granulocyte % (Auto) 0 % Neutrophils (%) (Auto) 68 42-75 % Lymphocytes (%) (Auto) 23 12-44 % Monocytes (%) (Auto) 7 0-12 % Eosinophils (%) (Auto) 2 0-10 % Basophils (%) (Auto) 0 0-10 % Neutrophils # (Auto) 8.0 H 1.8-7.8 X 10^3 Lymphocytes # (Auto) 2.7 1.0-4.0 X 10^3 Monocytes # (Auto) 0.8 0.0-1.0 X 10^3 Eosinophils # (Auto) 0.2 0.0-0.3 10^3/uL Basophils # (Auto) 0.1 0.0-0.1 10^3/uL Immature Granulocyte # (Auto) 0.0 0.0-0.1 10^3/uL Prothrombin Time 14.9 H 12.2-14.7 SEC INR Comment 1.1 0.8-1.4 Activated Partial Thromboplast Time 32 24-35 SEC Sodium Level 135 135-145 MMOL/L Potassium Level 4.0 3.6-5.0 MMOL/L Chloride Level 101 98-107 MMOL/L Carbon Dioxide Level 26 21-32 MMOL/L Anion Gap 8 5-14 MMOL/L Blood Urea Nitrogen 18 7-18 MG/DL Creatinine 1.11 0.60-1.30 MG/DL Estimat Glomerular Filtration Rate 67 BUN/Creatinine Ratio 16 Glucose Level 102 70-105 MG/DL Calcium Level 9.5 8.5-10.1 MG/DL Corrected Calcium 9.3 8.5-10.1 MG/DL Magnesium Level 1.8 1.6-2.4 MG/DL Total Bilirubin 0.7 0.1-1.0 MG/DL Aspartate Amino Transf (AST/SGOT) 26 5-34 U/L Alanine Aminotransferase (ALT/SGPT) 29 0-55 U/L Alkaline Phosphatase 73 40-136 U/L Troponin I 0.31 *H <0.30 NG/ML Pro-B-Type Natriuretic Peptide 1354.0 H <75.0 PG/ML Total Protein 7.2 6.4-8.2 GM/DL Albumin 4.3 3.2-4.5 GM/DL My Orders Orders - ANTHONY MONTANA MD Cbc With Automated Diff (08/15/21 01:48) Magnesium (08/15/21 01:48) Chest 1 View Ap/Pa Only (08/15/21 01:48) Ekg Tracing (08/15/21 01:48) Comprehensive Metabolic Panel (08/15/21 01:48) Protime With Inr (08/15/21 01:48) Partial Thromboplastin Time (08/15/21 01:48) Monitor-Rhythm Ecg Trace Only (08/15/21 01:48) Ed Iv/Invasive Line Start (08/15/21 01:48) Hydralazine Injection (Apresoline Inject (08/15/21 01:48) Probnp Fs (08/15/21 01:48) Troponin I Fs (08/15/21 01:48) Meclizine Tablet (Antivert Tablet) (08/15/21 02:52) Hydralazine Injection (Apresoline Inject (08/15/21 02:52) Lorazepam Injection (Ativan Injection) (08/15/21 02:52) Enoxaparin Injection (Lovenox Injection) (08/15/21 02:54) Vital Signs/I&O 08/15/21 08/15/21 08/15/21 08/15/21 01:38 01:45 02:15 03:00 Temp 36.5 Pulse 79 69 71 74 Resp 17 17 20 19 B/P (MAP) 206/97 (133) 185/73 178/66 153/77 Pulse Ox 96 97 97 98 O2 Delivery Room Air Room Air Room Air Capillary Refill : Progress Note #1: Progress Note obtain basic labs, including cardiac enzymes and coags. CXR with his complaint of arm numb/tingling, elevated blood pressure. Try Hydralazine 10 mg IV for blood pressure. Progress Note #2: Progress Note Labs shows white blood cell is elevated to 11.8. His troponin is at upper limit of normal after having symptoms since 9 am. If his troponin was going to be elevated from a heart attack then it should be higher than 0.31 by now after 16 hours of symptoms. He has mild elevation of proBNP. His CXR does not show any acute process. Coags show he is subtherapeutic on his INR. When I went to discuss his results with the patient and I advised him that his test looked okay and he stated that he was relieved. He seemed less anxious. At that point he admitted to me that he had been to a constitution party and drank a lot of tequila as well as smoke marijuana with speed. He stated that he did not know that the marijuana has speed in it until after he had been smoking it. Ever since that on Friday night he has not felt right and been very anxious. He now has his been worried about it all day and finally came into the ED. He was worried about telling anyone about smoking the marijuana and speed because he thought that everyone would circle beveler him. I advised him that certainly could raise his blood pressure as well as being anxious and worried about it. However his pressure has come down with treatment here in the ED. As we discussed things he stated that he was starting to get dizzy and he has a history of vertigo. He is out of his meclizine he usually takes for that. We will supplement his meclizine here. We will do an additional dose of hydralazine. For his anxiety and ingestion of speed will give a dose of Ativan. For his subtherapeutic INR will give a dose of Lovenox 1 mg/kg and have him increase his Warfarin to 4 mg or 2 of his 2 mg pills a day until he can see his doctor and have it rechecked. Pt states that since he is going home this morning to [place] he did not want to get prescriptions for medicines to be filled locally. He would rather wait and call the clinic/provider when he gets back home today. ECG Initial ECG Impression Date: Aug 15, 2021 Initial ECG Impression Time: 01:48 Initial ECG Rate: 75 Initial ECG Comparisson: Unchanged Comment Atrial sensed ventricular paced complexes with a rate of 75 bpm. TN interval 213 ms. QT interval 459 ms with a QTc interval [address] elevation. Appears similar to tracings from May 2020 Diagnostic Imaging Diagonstic Imaging: Xray Plain Films/CT/US/NM/MRI: chest Comments On my review of his 1 view chest x-ray has no acute infiltrate or effusions. He has no acute changes from prior imaging in the system Reviewed: Reviewed by Me Departure Impression Primary Impression: Elevated blood pressure reading with diagnosis of hypertension Additional Impressions: Subtherapeutic international normalized ratio (INR) Vertigo Anxiety about health Disposition: HOME, SELF-CARE Condition: Stable Departure-Patient Inst. Decision time for Depature: 03:01 Referrals: NO,LOCAL PHYSICIAN (PCP/Family) Primary Care Physician Patient Instructions: Vertigo ED, High Blood Pressure ED, Anxiety, Adult ED, Prothrombin Time (PT) Test and International Normalized Ratio (INR) Add. Discharge Instructions: Your INR was low at 1.1 today. You were given a Lovenox shot to help anti- coagulate your blood and you need to increase your dose of Warfarin (Coumadin) from 2 mg a day to 4 mg a day, which will double your dose. This will help raise your INR and thin your blood to a therapeutic level. You need to follow up with your regular provider about this for a recheck after you get home to [place]. Once you get home to [place] on FridayAugust 15, you need to immediately contact your provider so they can get refills for your medicines. Stay well hydrated and get plenty of rest. ANTHONY MONTANA MD Aug 15, 2021 01:56
[2021-08-15 02:00] LABS: BASOPHILS % (AUTO) 0 % (0-10); EOSINOPHILS % (AUTO) 2 % (0-10); HEMATOCRIT 38 % (40-54); HEMOGLOBIN 12.2 g/dL (13.3-17.7); LYMPHOCYTES % (AUTO) 23 % (12-44); MEAN CORPUSCULAR HEMOGLOBIN 27 pg (25-34); MEAN CORPUSCULAR HGB CONC 32 g/dL (32-36); MEAN CORPUSCULAR VOLUME 82 fL (80-99); MEAN PLATELET VOLUME 11.2 fL (9.0-12.2); MONOCYTES % (AUTO) 7 % (0-12); NEUTROPHILS % (AUTO) 68 % (42-75); PLATELET COUNT 200 10^3/uL (130-400); WHITE BLOOD COUNT 11.8 10^3/uL (4.3-11.0)
[2021-08-15 02:01] LABS: BASOPHILS # (AUTO) 0.1 10^3/uL (0.0-0.1); EOSINOPHILS # (AUTO) 0.2 10^3/uL (0.0-0.3); LYMPHOCYTES # (AUTO) 2.7 X 10^3 (1.0-4.0); MONOCYTES # (AUTO) 0.8 X 10^3 (0.0-1.0)
[2021-08-15 02:14] LABS: INR 1.1 (0.8-1.4); PROTHROMBIN TIME PATIENT 14.9 SEC (12.2-14.7)
[2021-08-15 02:33] LABS: BILIRUBIN,TOTAL 0.7 MG/DL (0.1-1.0); CALCIUM 9.5 MG/DL (8.5-10.1); CREATININE SERUM 1.11 MG/DL (0.60-1.30); MAGNESIUM 1.8 MG/DL (1.6-2.4)
[2021-08-15 02:34] LABS: ALBUMIN 4.3 GM/DL (3.2-4.5); TOTAL PROTEIN 7.2 GM/DL (6.4-8.2)
[2021-08-15] MEDS ORDERED: LORazepam INJ 2 MG/ML (ATIVAN) VIAL IVP STA (02:52)
[2021-08-15] MEDS ORDERED: MECLIZINE 25 MG (ANTIVERT) TAB PO STA (02:52)
[2021-08-15] MEDS ORDERED: ENOXAPARIN 100 MG/1 ML (LOVENOX) SYR SC STA (02:54)
[2021-08-15 03:22] VITALS: BP 169/67
--- NOTE | 2021-08-15 04:33 | Diagnostic Imaging Report ---
Indication: Chest pain and left arm pain Portable chest 1:56 AM There is a dual-chamber pacemaker. There are postoperative changes from a median sternotomy. Heart size and pulmonary vascularity are normal. Lungs are clear. There are no effusions or pneumothoraces. IMPRESSION: Postsurgical changes in the chest. No acute abnormality seen. Dictated by: Dictated on workstation # [id number]
== END 2021-08-15 03:22 | disposition home or self-care (01) ==
LOC: EDUNIT# 01:31 → ER FS 01:35
DX: I10 Essential (primary) hypertension (principal); R42 Dizziness and giddiness; R79.1 Abnormal coagulation profile; F41.1 Generalized anxiety disorder; E11.9 Type 2 diabetes mellitus without complications; Z95.4 Presence of other heart-valve replacement; Z79.01 Long term (current) use of anticoagulants; Z79.84 Long term (current) use of oral hypoglycemic drugs; Z79.899 Other long term (current) drug therapy
CPT/HCPCS: 36415; 71045; 80053; 83735; 83880; 84484; 85025; 85610; 85730; 93005; 93041